=== PATIENT | female | born 1945 | race Caucasian/White ===

== ENCOUNTER 2019-10-08 16:59 | Inpatient (IN) | payer MEDICARE ==
[~2019-10-08 16:59] MED LIST: Dexamethasone 20 MG/5 ML VIAL ONE; Esmolol 100 MG/10 ML VIAL ONE; Glycopyrrolate 0.2 MG/ML 5 ML SYRINGE ONE; Lidocaine 1% PF 5 ML VIAL ONE; Ondansetron PF 4 MG/2 ML Vial ONE; PROPOFOL 200 MG/20 ML VIAL ONE; Rocuronium Bromide 10 MG/ML (10ML VIAL) ONE
--- NOTE | 2019-10-08 17:34 | RAD ---
Exam:Left tibia fibula 2 views HISTORY: Trauma. Pain. COMPARISON: None FINDINGS: Displaced fracture along the distal tibia and fibula. Associated soft tissue swelling and d eformity. IMPRESSION: Distal tibia and fibula fractures with associated deformity
--- NOTE | 2019-10-08 17:36 | RAD ---
Exam: Chest one view HISTORY:Preoperative radiograph. Fracture. Comparison: None FINDINGS: Cardiac silhouette:Enlarged cardiac silhouette. Aorta: Atherosclerosis of the aorta Pulmonary vessels: Normal Costophrenic angles: Clear LUNGS: No masses or consolidation. Pneumothorax: None Osseous abnormalities: None Incidental: Hiatal hernia is noted. IMPRESSION: No acute cardiopulmonary process.
[2019-10-08 18:08] LABS: #Neutrophils 7.2 thou/uL (1.40-6.50); %Basophils 0.2 % (0.0-1.0); %Eosinophils 0.2 % (0.0-10.0); %Lymphocytes 11.2 % (21.0-51.0); %Monocytes 10.6 % (0.0-10.0); %Neutrophils 77.9 % (42.0-75.0); Hemoglobin 12.9 g/dL (12.0-16.0); Mean Corpuscular HGB CONC 33.7 g/dL (32.0-36.0); Mean Corpuscular Hemoglobin 31.9 pg (27.0-31.0); Mean Corpuscular Volume 94.8 fL (78.0-98.0); Mean Platelet Volume 7.7 fL (7.4-10.4); Platelet Count 189 thou/uL (130-400); RBC Distribution Width 11.9 % (11.5-14.5); Red Blood Cell (RBC) Count 4.05 mill/uL (4.20-5.40); White Blood Cell (WBC) Count 9.3 thou/uL (4.8-10.8)
[2019-10-08 18:19] LABS: ALT (SGPT) 13 U/L (8-55); AST (SGOT) 16 U/L (5-34); Albumin 4.2 g/dL (3.4-4.8); Alkaline Phosphatase 78 U/L (40-110); Anion Gap 12 mmol/L (10-20); BUN (Urea Nitrogen) 18 mg/dL (9.8-20.1); Bilirubin, Total 0.4 mg/dL (0.2-1.2); Calc. Creatinine Clearance 0 mL/min (70-130); Calcium 8.8 mg/dL (7.8-10.44); Carbon Dioxide 23 mmol/L (23-31); Chloride 112 mmol/L (98-107); Estimated GFR-MDRD 42; Globulin 2.4 g/dL (2.4-3.5); Glucose 111 mg/dL (83-110); Potassium 4.2 mmol/L (3.5-5.1); Protein, Total 6.6 g/dL (6.0-8.3); Sodium 143 mmol/L (136-145)
[2019-10-08] MEDS ORDERED: Fentanyl 100 MCG/2 ML VIAL ONE ×6 (18:43→22:31)
[2019-10-08] MEDS ORDERED: HYDROmorphone 0.5 MG/0.5 ML SYRINGE ONE (18:44)
[2019-10-08] MEDS ORDERED: Phenylephrine HCL 10 MG/ML VIAL ONE (18:45)
--- NOTE | 2019-10-08 19:53 | RAD ---
TWO VIEWS LEFT FOOT: 10/08/19 HISTORY: Fall. Pain. Tibia and fibula fracture. FINDINGS: Lisfranc alignment is maintained. Preserved joint spaces. No fracture, cortical irregularity or perio steal reaction. Lisfranc alignment is maintained. Distal tibia and fibula fractures are redemonstrated. IMPRESSION: No fracture. POS: PPP
[2019-10-08] MEDS ORDERED: hydrALAZINE 20 MG/ML VIAL SLOW IVP PRN (20:47)
[2019-10-08] MEDS ORDERED: Dextrose 5% in Water 1,000 ML IV PRN (20:47)
[2019-10-08] MEDS ORDERED: Dextrose 50% Abboject 50 ML SYRINGE SLOW IVP PRN (20:47)
[2019-10-08] MEDS ORDERED: traMADol HCl 50 MG TAB PO PRN ×2 (20:50)
[2019-10-08] MEDS ORDERED: Ondansetron HCl/PF 4 MG/2 ML Vial IVP PRN (21:12)
--- NOTE | 2019-10-08 21:28 | RAD ---
EXAM: INTRAOPERATIVE FLUOROSCOPY: 10/08/19 HISTORY: Left leg ORIF. EXPOSURE: 13.5 seconds, 0.32 mGy. FINDINGS: Intraoperative fluoroscopy demonstrates a side plate at the distal tibia and fibula. Near anatomic al ignment. IMPRESSION: Intraoperative fluoroscopy as above. POS: PPP
--- NOTE | 2019-10-08 21:58 | HP ---
TRAUMA SURGEON: Dr. Noyola. CONSULTING PHYSICIAN: Dr. Flores. HISTORY OF PRESENT ILLNESS: The patient is a 74-year-old female, who presented to the emergency department via EMS as a level 2 trauma activation when she fell while trying to get on a horse. The patient had obvious left ankle deformity and she was splinted in the emergency department and sent to the Day Stay as orthopedic surgeon wants to take her to the OR. At the time of my evaluation, the patient complained of significant left ankle pain and her toes were becoming dusky and blue. Toes were also cold to the touch. She reported before the splinting, that she had pink normal color toes. Her sensation was intact. There was no concern for compartment syndrome. The splint was taken down at that time. The Doppler was performed and the patient had intact dopplerable posterior tibialis pulses, but there was no dorsalis pedis pulse noted. The patient's foot became cold about mid foot and was warm at the location of the ankle and above. She complained of no other pain and denied loss of consciousness. REVIEW OF SYSTEMS: All additional 10-point review of systems negative except as indicated above. PAST MEDICAL HISTORY: None. PAST SURGICAL HISTORY: Hysterectomy. SOCIAL HISTORY: The patient is a smoker. She drinks alcohol only on Tuesdays and denies drug use. MEDICATIONS: None. ALLERGIES: NO KNOWN DRUG ALLERGIES. PHYSICAL EXAMINATION: VITAL SIGNS: The patient is afebrile, hemodynamically stable, and not tachycardic. She is saturating greater than 91% on room air with no signs of respiratory distress. PRIMARY SURVEY: Airway intact. Adequate breath sounds bilaterally. 2+ pulses in the bilateral radials and femorals. Pulses positive in the right DP. Positive dopplerable pulses in the left PT, but no dopplerable pulse in the left DP. GCS is 15. No laceration, bruising, or external bleeding. SECONDARY SURVEY: HEAD: Normocephalic, atraumatic. No gross palpable skull deformities. EYES: Pupils 3-2, equal, round, reactive to light bilaterally. ENT: No hemotympanum. No epistaxis. No septal hematoma. Midface, stable to manipulation. No blood in the oropharynx. Dentition is intact. No anterior neck injury/crepitus/tenderness. C-SPINE: No step-offs or deformities. Nontender. C-collar not in place. CHEST: Nontender. No crepitus. No abrasions or ecchymosis noted. ABDOMEN: Soft, nontender, nondistended. PELVIS: Stable to palpation, nontender. No abrasions or ecchymosis noted. RECTAL: Deferred. GENITOURINARY: Deferred. EXTREMITIES: Left ankle with deformity. There is also duskiness to the patient's midfoot and toes. No abrasions or ecchymosis noted. 2+ pulses in bilateral radials, femorals, and the right DP/PT. There is no dopplerable pulse of the left DP, but there is a dopplerable pulse of the left PT. BACK/SPINE: No step-offs or deformities or tenderness to palpation of the thoracic or lumbar spine. No abrasions or ecchymosis noted. NEUROLOGIC: 5/5 strength in the bilateral prop sawyer, plantar flexion, and dorsiflexion. Gross normal sensation x4 extremities. LABORATORY FINDINGS: White count 9.3, hemoglobin 12.9, hematocrit 38.4, platelets 189. Sodium 143, potassium 4.2, chloride 111, bicarb 23, BUN 18, creatinine 1.25, glucose 111, total bilirubin 0.4, AST 16, ALT 13. Troponin less than 0.010. DIAGNOSTIC FINDINGS: Chest x-ray demonstrates no acute cardiopulmonary process. X-ray of the left tib-fib demonstrates distal tibial and fibular fracture with associated deformity. X-ray of the left foot demonstrates no fracture. ASSESSMENT: 1. Status post fall from horse. 2. Left tib-fib fracture. 3. Diminished pulses to the left mid foot. 4. Acute kidney injury. PLAN: The patient will be admitted to the Trauma Service. Dr. Flores at bedside evaluating pulses in the foot. He reports he will re-evaluate with Doppler after he reduces the foot and fixes the fracture in the operating room and will follow up with the Trauma Team postoperatively. If there is further concern for vascular injury, we will work that up as well. Postoperatively, the patient will work with Physical and Occupational Therapy and receive p.o. and IV pain medications as needed. She will also receive normal saline for her acute kidney injury, and we will repeat blood work tomorrow. She will likely need placement in acute rehab facility. We will ask Case Management to start working on that tomorrow. Postoperatively, she will have a regular diet as well. This patient will be discussed with Dr. Noyola after this dictation. Job ID: [id number]
[2019-10-08] MEDS: CEFAZOLIN 2 GM in Premix Bag 1 BAG IVPB SCH (23:09)
[2019-10-08] MEDS: Sodium Chloride 0.9% 1,000 ML IV SCH (23:19)
[2019-10-08] MEDS: Morphine 2 MG/ML SYRINGE SLOW IVP PRN (23:20)
[2019-10-08] MEDS: Senokot S 8.6-50 MG TAB PO SCH (23:21)
[2019-10-08] MEDS: Acetaminophen 500 MG TAB PO SCH (23:21)
[2019-10-08] MEDS: Gabapentin 100 MG CAP PO SCH (23:21)
--- NOTE | 2019-10-08 23:30 | PRG ---
DATE OF SERVICE: 10/08/2019 SUBJECTIVE: The patient was seen this evening in the post-anesthesia care unit. The patient is postop repair of her left tibia fracture. The patient is currently sedated, in no acute distress. The patient has a splint in place to her left lower extremity. Cap refill is less than 2 seconds, foot is warm and pink. ASSESSMENT: 1. Status post fall from horse. 2. Left tib-fib fracture, status post repair. 3. Acute kidney injury. PLAN: Continue maintenance IV fluids overnight. We will start the patient on a regular diet as tolerated. We will have Physical and Occupational Therapy work with the patient tomorrow morning. We will continue to monitor urinary output and repeat labs in the morning. Job ID: [id number]
[2019-10-08 23:38] VITALS: BMI 27.1
--- NOTE | 2019-10-09 00:47 | OP ---
DATE OF PROCEDURE: 10/08/2019 PROCEDURE PERFORMED: Open reduction and internal fixation of left distal tibia and left distal fibular fracture. PREOPERATIVE DIAGNOSIS: Left distal fibula and tibia fracture. POSTOPERATIVE DIAGNOSIS: Left distal fibula and tibia fracture. COMPLICATIONS: None. ESTIMATED BLOOD LOSS: 50 mL. ANESTHESIA: General. IMPLANT: Synthes 4-hole distal tibial medial variable angle locking plate and a 5-hole distal fibular locking plate were utilized. INDICATIONS: Ms. Olmos is a 74-year-old female, who has been injured. She was attempting to ride a wild horse. She was thrown. She landed on her left leg. She became entangled with a stool as well. She fractured the distal tibia and fibula. She has been indicated for open reduction and internal fixation to restore anatomic alignment and promote healing and prevent complications of her displacement. Risks have been reviewed in detail. She has elected to proceed with the operation. Risks to include, nonunion, malunion, infection, wound complication, and others. DESCRIPTION OF PROCEDURE: Ms. Olmos is a 74-year-old female, who was identified in the preoperative holding area. Her correct extremity was marked. She was carried to the operating room. She was positioned supine. General anesthesia was induced. A multidisciplinary time-out was performed. The left lower extremity was prepped and draped in sterile fashion. We began the procedure with performing a small incision over the medial malleolus. We dissected down through the subcutaneous tissues to the medial malleolar bone. We cleared a spot for our plate. We subperiosteally passed a plate from distal to proximal. At this point, we reduced the fracture using gentle traction and manipulation. We x-ray imaged this confirming reduction. Next, we placed a nonlocking screw proximally as well as distally. We then filled multiple screw holes with locking screws. Again, we confirmed this with x-ray imaging. There were no complications. Once we had adequate fixation, we then moved to the lateral side. We made an incision over the fibula, dissected down to the bony level. We exposed the underlying fibular fracture. It was highly comminuted and displaced. We used a bridge plate technique. We pulled traction on the fibula and placed our lateral locking plate. Multiple screws were placed distally and proximally. Again, once we finished fixation, we x-ray imaged the ankle. We then thoroughly irrigated with copious lavage. Next, we closed in layers. 2-0 Vicryl suture and 3-0 nylon suture were used in an interrupted fashion. A sterile dressing was applied and a splint. The patient was taken to the recovery room at this point in good condition. Job ID: [id number]
--- NOTE | 2019-10-09 00:52 | CON ---
DATE OF CONSULTATION: 10/08/2019 CHIEF COMPLAINT: Left ankle pain. HISTORY OF PRESENT ILLNESS: Ms. Olmos is a 74-year-old female, who was attempting to get on a horse using a stool. She unfortunately spooked the horse and the horse took off and she fell hard. She injured her left ankle. She had immediate pain and deformity. She was unable to bear weight. She was found to have a distal tibia and fibular fracture on initial x-ray. Orthopedics was consulted. The patient has been given pain medication. She is resting comfortably. No other injuries have been identified. PAST MEDICAL HISTORY: Prolapsed bladder. Otherwise, she denies active medical problems. PAST SURGICAL HISTORY: [place] tooth extraction and hysterectomy. PSYCHIATRIC HISTORY: Negative. SOCIAL HISTORY: The patient denies tobacco, alcohol, or drug use currently. REVIEW OF SYSTEMS: Positive for left ankle pain. Otherwise, negative 10-point review of systems. IMAGING DATA: X-rays demonstrated distal tibia fracture with significant displacement. There is also highly comminuted distal fibular fracture. PHYSICAL EXAMINATION: VITAL SIGNS: Stable. The patient is afebrile. She is normotensive. 98% on room air. GENERAL: She is alert and oriented, sitting with head of bed elevated. No apparent distress. HEENT: Normocephalic, atraumatic. RESPIRATORY: Breathing comfortably. ABDOMEN: Soft, nontender, and nondistended. MUSCULOSKELETAL: The patient's left lower extremity has deformity and swelling. There is good two-second capillary refill of the foot. Posterior tibialis pulse is palpable. The dorsalis pedis pulse is not palpable. She feels normal sensation in the dorsal and plantar foot. IMPRESSION: Left distal tibia and fibular fracture from horse accident. PLAN: At this point, the patient will go to the operating room for open reduction and internal fixation of her tibia and fibula. Goal is to restore anatomic alignment and stability of the ankle. Risks have been reviewed with her and her family. We will proceed. She will have antibiotics on-call to the operating room, as well as DVT prophylaxis postoperatively. She will likely need to be in the hospital two days for physical therapy. She will be nonweightbearing on her left leg for 6 weeks at least. Job ID: [id number]
[2019-10-09] MEDS: Morphine 2 MG/ML SYRINGE SLOW IVP PRN (03:39)
[2019-10-09] MEDS: Acetaminophen 500 MG TAB PO SCH ×4 (05:01→23:57)
[2019-10-09] MEDS: CEFAZOLIN 2 GM in Premix Bag 1 BAG IVPB SCH (05:01)
[2019-10-09 05:09] LABS: #Lymphocytes 0.7 thou/uL (1.20-3.40); #Monocytes 0.4 thou/uL (0.11-0.59); #Neutrophils 5.9 thou/uL (1.40-6.50); %Basophils 0.1 % (0.0-1.0); %Eosinophils 0.1 % (0.0-10.0); %Lymphocytes 10.3 % (21.0-51.0); %Monocytes 5.8 % (0.0-10.0); %Neutrophils 83.7 % (42.0-75.0); Mean Corpuscular HGB CONC 33.3 g/dL (32.0-36.0); Mean Corpuscular Hemoglobin 31.5 pg (27.0-31.0); Mean Corpuscular Volume 94.6 fL (78.0-98.0); Mean Platelet Volume 6.8 fL (7.4-10.4); Platelet Count 148 thou/uL (130-400); RBC Distribution Width 11.9 % (11.5-14.5); Red Blood Cell (RBC) Count 3.51 mill/uL (4.20-5.40); White Blood Cell (WBC) Count 7.1 thou/uL (4.8-10.8)
[2019-10-09 05:37] LABS: Anion Gap 10 mmol/L (10-20); BUN (Urea Nitrogen) 14 mg/dL (9.8-20.1); Calc. Creatinine Clearance 46 mL/min (70-130); Calcium 8.2 mg/dL (7.8-10.44); Carbon Dioxide 23 mmol/L (23-31); Chloride 110 mmol/L (98-107); Estimated GFR-MDRD 48; Glucose 137 mg/dL (83-110); Magnesium 1.7 mg/dL (1.6-2.6); Phosphorus 3.6 mg/dL (2.3-4.7); Potassium 4.2 mmol/L (3.5-5.1); Sodium 139 mmol/L (136-145)
[2019-10-09] MEDS ORDERED: Magnesium 2 GM/50 ML 2 GM in Premix Bag 1 BAG IVPB SCH (07:30)
[2019-10-09] MEDS: Gabapentin 100 MG CAP PO SCH ×3 (07:58→20:27)
[2019-10-09] MEDS: Senokot S 8.6-50 MG TAB PO SCH ×2 (07:58→20:28)
[2019-10-09] MEDS: Polyethylene Glycol 3350 17 GM Packet PO SCH (07:58)
[2019-10-09] MEDS ORDERED: FLU VACC TS2019-20(65YR UP)/PF 180 MCG/0.5 ML SYRINGE IM ONE (09:00)
[2019-10-09] MEDS ORDERED: Prevnar 13-Val Conj/PF 0.5 ML SYRINGE IM ONE (09:00)
[2019-10-09] MEDS: Sodium Chloride 0.9% 1,000 ML IV SCH (10:44)
[2019-10-09] MEDS: traMADol HCl 50 MG TAB PO SCH ×3 (11:42→23:57)
--- NOTE | 2019-10-09 15:27 | PRG ---
DATE OF SERVICE: 10/09/2019 SUBJECTIVE: Patient was seen this morning lying in bed with no signs of acute distress. She reported her pain was not well controlled. She is tolerating regular diet and has not worked with Physical Therapy yet. OBJECTIVE: VITAL SIGNS: Temperature is 97.9, pulse 74, respirations 18, oxygen saturation 92% on room air, blood pressure 103/63. GENERAL: Well-appearing elderly female, lying in bed with no signs of acute distress. PULMONARY: Equal chest rise and fall, clear breath sounds bilaterally. No signs of acute respiratory distress. CARDIAC: Regular rate and rhythm. GI: Abdomen is soft, nontender, nondistended. EXTREMITIES: 2+ pulses in all extremities. Gross motor and sensation intact. Splint to left upper extremity is clean, dry, and intact. LABORATORY FINDINGS: White count 7.1, hemoglobin 11.0, hematocrit 33.2, platelets 148. Sodium 139, potassium 4.2, chloride 110, bicarb 23, BUN 14, creatinine 1.10, glucose 137, phosphorus 3.6, magnesium 1.7. DIAGNOSTIC FINDINGS: There are no new diagnostic findings to report. ASSESSMENT: 1. Status post fall from horse. 2. Left tibia-fibula fracture, status post repair. 3. Acute kidney injury, resolved. 4. Acute traumatic pain. PLAN: Continue current diet. Discontinue IV fluids. We would increase patient's pain regimen. I increased gabapentin to 300 t.i.d. and tramadol to 100 q.6 hours. She will be started on Lovenox for DVT prophylaxis and will be discharged on aspirin for DVT prophylaxis. She is being evaluated for acute rehab placement. Job ID: [id number]
[2019-10-09] MEDS: Enoxaparin Sodium 30 MG/0.3 ML SYRINGE SC SCH (20:28)
--- NOTE | 2019-10-10 01:09 | PRG ---
DATE OF SERVICE: 10/09/2019 SUBJECTIVE: Patient was seen during evening rounds, resting comfortably in the hospital bed, in no acute distress. The patient is postop day #1 status post left tibia fracture repair. OBJECTIVE: Vital signs are stable and the patient is afebrile. PLAN: Continue supportive care and pain regimen. Continue to monitor urinary output. Continue physical and occupational therapy. Rehab screen has been placed. Job ID: [id number]
[2019-10-10] MEDS: traMADol HCl 50 MG TAB PO SCH ×4 (05:00→23:21)
[2019-10-10] MEDS: Acetaminophen 500 MG TAB PO SCH ×4 (05:00→23:20)
[2019-10-10 05:58] LABS: Anion Gap 10 mmol/L (10-20); BUN (Urea Nitrogen) 18 mg/dL (9.8-20.1); Calc. Creatinine Clearance 43 mL/min (70-130); Calcium 8.1 mg/dL (7.8-10.44); Carbon Dioxide 25 mmol/L (23-31); Chloride 105 mmol/L (98-107); Estimated GFR-MDRD 44; Glucose 97 mg/dL (83-110); Magnesium 1.8 mg/dL (1.6-2.6); Phosphorus 3.2 mg/dL (2.3-4.7); Potassium 3.7 mmol/L (3.5-5.1); Sodium 136 mmol/L (136-145)
[2019-10-10] MEDS ORDERED: PHOS-NAK 1 PKT PACK PO SCH (09:15)
[2019-10-10] MEDS ORDERED: Sodium Chloride 0.9% 1,000 ML IV SCH (09:15)
[2019-10-10] MEDS ORDERED: Magnesium 2 GM/50 ML 2 GM in Premix Bag 1 BAG IVPB SCH (09:15)
[2019-10-10] MEDS: Senokot S 8.6-50 MG TAB PO SCH ×2 (09:24→20:34)
[2019-10-10] MEDS: Gabapentin 100 MG CAP PO SCH ×3 (09:24→20:35)
[2019-10-10] MEDS: Polyethylene Glycol 3350 17 GM Packet PO SCH (09:25)
--- NOTE | 2019-10-10 09:30 | PRG ---
DATE OF SERVICE: 10/10/2019 SUBJECTIVE: Shu is a 74-year-old female, who is postop day 2 from a left ankle open reduction and internal fixation for distal metaphyseal tibial fracture and fibular fracture on the left. I believe the Trauma Team is discussing inpatient rehabilitation placement for this particular patient due to the fact she lives alone. OBJECTIVE: Her splints loosened. She does have some strikethrough both medially and laterally, but no gross active bleeding is identified. She has good digital excursion and good capillary refill in all digits. Her legs elevated and splints intact otherwise. LABORATORY STUDIES: Hemoglobin and hematocrit as of yesterday are 11 and 33. IMPRESSION: A 74-year-old female, postop day 2, left distal tibial and fibular metaphyseal fracture, status post open reduction and internal fixation. PLAN: Splint loosened today. Recheck tomorrow. Defer to Trauma Team for placement. Job ID: [id number]
[2019-10-10 09:48] LABS: #Lymphocytes 1.6 thou/uL (1.20-3.40); #Monocytes 0.9 thou/uL (0.11-0.59); #Neutrophils 3.4 thou/uL (1.40-6.50); %Basophils 0.7 % (0.0-1.0); %Eosinophils 0.7 % (0.0-10.0); %Lymphocytes 26.4 % (21.0-51.0); %Monocytes 14.9 % (0.0-10.0); %Neutrophils 57.3 % (42.0-75.0); Hemoglobin 9.8 g/dL (12.0-16.0); Mean Corpuscular HGB CONC 33.4 g/dL (32.0-36.0); Mean Corpuscular Hemoglobin 31.9 pg (27.0-31.0); Mean Corpuscular Volume 95.6 fL (78.0-98.0); Mean Platelet Volume 7.5 fL (7.4-10.4); Platelet Count 162 thou/uL (130-400); RBC Distribution Width 12.2 % (11.5-14.5); Red Blood Cell (RBC) Count 3.08 mill/uL (4.20-5.40); White Blood Cell (WBC) Count 5.9 thou/uL (4.8-10.8)
[2019-10-10] MEDS ORDERED: Cyclobenzaprine 10 MG TAB PO PRN (10:14)
[2019-10-10] MEDS ORDERED: Hydrocortisone Sod Succ/PF 100 mg/2 ml Vial IVP SCH ×2 (10:15→18:00)
--- NOTE | 2019-10-10 14:31 | PRG ---
DATE OF SERVICE: 10/10/2019 SUBJECTIVE: The patient was seen this morning lying in bed with no signs of acute distress. She reported cramping like feeling in her left ankle. Reported sleeping well overnight. Has not had breakfast simply because she is not hungry. In the past 24 hours, she had low urinary output and this morning was hypotensive with systolics in the 80s. OBJECTIVE: VITAL SIGNS: Temperature 97.9, pulse 73, respirations 18, oxygen saturation 92% on room air, blood pressure 89/57. GENERAL: Well-appearing elderly female, lying in bed with no signs of acute distress. PULMONARY: Equal chest rise and fall. Clear breath sounds bilaterally. No signs of acute respiratory distress. CARDIAC: Regular rate and rhythm. GI: Abdomen is soft, nontender, nondistended. EXTREMITIES: 2+ pulses in all extremities. No significant swelling noted. Bilateral cap refills that are normal. LABORATORY FINDINGS: White count 5.9, hemoglobin 9.8, hematocrit 29.5, platelets 162. Sodium 136, potassium 3.7, chloride 105, bicarb 25, BUN 18, creatinine 1.19, glucose 97, phosphorus 3.2, magnesium 1.8, cortisol 7.8. DIAGNOSTIC FINDINGS: There are no new diagnostic findings to report. ASSESSMENT: 1. Status post fall from horse. 2. Left distal tib-fib fracture, status post repair. 3. Acute kidney injury. 4. Acute adrenal insufficiency. PLAN: Continue current diet and pain regimen. Continue physical and occupational therapy. Add Flexeril to pain regimen. The patient will receive hydrocortisone today as well as 1 L bolus of normal saline for low urinary output and systolic blood pressures less than 90. We will follow up her urinary output. The patient is pending placement at an acute rehab facility. This patient was discussed with Dr. Pizarro before this dictation. Job ID: [id number]
[2019-10-10] MEDS: Hydrocortisone Sod Succ/PF 100 mg/2 ml Vial IVP SCH ×2 (18:18→23:22)
[2019-10-10] MEDS: Enoxaparin Sodium 30 MG/0.3 ML SYRINGE SC SCH (20:35)
--- NOTE | 2019-10-11 03:36 | PRG ---
DATE OF SERVICE: 10/10/2019 SUBJECTIVE: The patient was seen during evening rounds, resting comfortably, in no acute distress. The patient continues to have good urinary output. OBJECTIVE: VITAL SIGNS: Stable, afebrile. PLAN: Continue current diet and pain regimen. Continue physical and occupational therapy. We will continue to monitor urinary output and blood pressure. The patient is pending placement to an acute rehab facility. Job ID: [id number]
[2019-10-11 05:20] LABS: #Monocytes 0.6 thou/uL (0.11-0.59); #Neutrophils 4.2 thou/uL (1.40-6.50); %Basophils 0.2 % (0.0-1.0); %Eosinophils 0.2 % (0.0-10.0); %Lymphocytes 16.5 % (21.0-51.0); %Monocytes 10.2 % (0.0-10.0); Hemoglobin 8.9 g/dL (12.0-16.0); Mean Corpuscular HGB CONC 33.7 g/dL (32.0-36.0); Mean Corpuscular Hemoglobin 32.7 pg (27.0-31.0); Mean Platelet Volume 7.1 fL (7.4-10.4); Platelet Count 148 thou/uL (130-400); RBC Distribution Width 11.9 % (11.5-14.5); Red Blood Cell (RBC) Count 2.73 mill/uL (4.20-5.40); White Blood Cell (WBC) Count 5.7 thou/uL (4.8-10.8)
[2019-10-11 05:43] LABS: Anion Gap 9 mmol/L (10-20); BUN (Urea Nitrogen) 12 mg/dL (9.8-20.1); Calc. Creatinine Clearance 59 mL/min (70-130); Calcium 8.2 mg/dL (7.8-10.44); Carbon Dioxide 26 mmol/L (23-31); Chloride 107 mmol/L (98-107); Estimated GFR-MDRD 64; Glucose 120 mg/dL (83-110); Phosphorus 3.2 mg/dL (2.3-4.7); Potassium 4.4 mmol/L (3.5-5.1); Sodium 138 mmol/L (136-145)
[2019-10-11] MEDS: Acetaminophen 500 MG TAB PO SCH ×4 (06:07→23:36)
[2019-10-11] MEDS: traMADol HCl 50 MG TAB PO SCH ×4 (06:08→23:36)
[2019-10-11] MEDS: Hydrocortisone Sod Succ/PF 100 mg/2 ml Vial IVP SCH ×4 (06:09→23:36)
[2019-10-11] MEDS: Senokot S 8.6-50 MG TAB PO SCH ×2 (10:36→20:23)
[2019-10-11] MEDS: Polyethylene Glycol 3350 17 GM Packet PO SCH (10:36)
[2019-10-11] MEDS: Gabapentin 100 MG CAP PO SCH ×3 (10:37→20:23)
--- NOTE | 2019-10-11 12:49 | PRG ---
DATE OF SERVICE: 10/11/2019 SUBJECTIVE: The patient was seen this morning, sitting up in chair with left upper extremity elevated. She reported she slept very well overnight and her pain is much better controlled today. Generally, she reports she is feeling much better. Her urinary output has increased tremendously, and she is tolerating her diet. OBJECTIVE: VITAL SIGNS: Temperature 98.5, pulse 76, respirations 16, oxygen saturation 93% on room air, blood pressure 112/73. GENERAL: Well-appearing elderly female, sitting up in chair with no signs of acute distress. PULMONARY: Equal chest rise and fall. Clear breath sounds bilaterally. No signs of acute respiratory distress. CARDIAC: Regular rate and rhythm. No murmurs, gallops, or rubs. GI: Abdomen is soft, nontender, nondistended. EXTREMITIES: 2+ pulses in all extremities. Gross motor and sensation are intact. No significant swelling noted. Left lower extremity with splint that is clean, dry, and intact. Toes are warm with good cap refill. NEUROLOGIC: GCS is 15. LABORATORY FINDINGS: White count 5.7, hemoglobin 8.9, hematocrit 26.5, platelets 148. Sodium 138, potassium 4.4, chloride 107, bicarb 26, BUN 12, creatinine 0.86, glucose 120, phosphorus 3.2, magnesium 2.0. DIAGNOSTIC FINDINGS: There are no new diagnostic findings to report. ASSESSMENT: 1. Status post fall from horse. 2. Left distal tibiofibular fracture, status post repair. 3. Acute kidney injury, resolved. 4. Acute adrenal insufficiency, stable. PLAN: Continue current diet and pain regimen. Continue physical and occupational therapy. The patient encouraged to drink more fluids. No need for additional IV fluids or boluses. Continue hydrocortisone as previously scheduled. The patient is pending placement in acute rehab facility. Hopefully, she will be accepted by her insurance and can be discharged tomorrow. This patient will be discussed with Dr. Pizarro after this dictation. Job ID: [id number]
[2019-10-11] MEDS: Enoxaparin Sodium 30 MG/0.3 ML SYRINGE SC SCH (20:24)
--- NOTE | 2019-10-12 01:24 | PRG ---
DATE OF SERVICE: 10/11/2019 SUBJECTIVE: The patient was seen this evening during rounds, sitting up in hospital bed, in no acute distress. The patient reports that her pain is well controlled and she continues to tolerate a regular diet. The patient's family did bring a brace for her right knee as she had requested. OBJECTIVE: VITAL SIGNS: Stable, afebrile. GENERAL: Well-appearing elderly female, sitting up in hospital bed, in no acute distress. PULMONARY: Equal chest rise and fall. No respiratory distress. EXTREMITIES: Moves all extremities, gross motor and sensation are intact. There is significant swelling. Left lower extremity with splint in place that is clean, dry, and intact. NEUROLOGIC: GCS 15. ASSESSMENT: 1. Status post fall from horse. 2. Left distal tibiofibular fracture, status post repair. 3. Acute kidney injury, resolved. 4. Acute adrenal insufficiency, stable. PLAN: 1. Continue supportive care. 2. Continue current diet as tolerated and pain regimen. 4. Continue physical and occupational therapy. 5. The patient is pending placement to acute inpatient rehab. Job ID: [id number] [facility]
[2019-10-12 05:09] LABS: #Lymphocytes 1.3 thou/uL (1.20-3.40); #Monocytes 0.6 thou/uL (0.11-0.59); #Neutrophils 3.2 thou/uL (1.40-6.50); %Basophils 0.2 % (0.0-1.0); %Eosinophils 0.2 % (0.0-10.0); %Lymphocytes 24.6 % (21.0-51.0); %Monocytes 12.2 % (0.0-10.0); %Neutrophils 62.8 % (42.0-75.0); Hemoglobin 8.7 g/dL (12.0-16.0); Mean Corpuscular HGB CONC 33.1 g/dL (32.0-36.0); Mean Corpuscular Hemoglobin 31.9 pg (27.0-31.0); Mean Corpuscular Volume 96.3 fL (78.0-98.0); Mean Platelet Volume 7.4 fL (7.4-10.4); Platelet Count 156 thou/uL (130-400); Red Blood Cell (RBC) Count 2.74 mill/uL (4.20-5.40); White Blood Cell (WBC) Count 5.1 thou/uL (4.8-10.8)
[2019-10-12] MEDS: traMADol HCl 50 MG TAB PO SCH ×3 (05:35→18:10)
[2019-10-12] MEDS: Acetaminophen 500 MG TAB PO SCH ×3 (05:35→18:10)
[2019-10-12 05:39] LABS: Anion Gap 11 mmol/L (10-20); BUN (Urea Nitrogen) 16 mg/dL (9.8-20.1); Calc. Creatinine Clearance 53 mL/min (70-130); Calcium 8.3 mg/dL (7.8-10.44); Carbon Dioxide 26 mmol/L (23-31); Chloride 106 mmol/L (98-107); Estimated GFR-MDRD 57; Glucose 120 mg/dL (83-110); Magnesium 1.8 mg/dL (1.6-2.6); Phosphorus 2.8 mg/dL (2.3-4.7); Potassium 4.2 mmol/L (3.5-5.1); Sodium 139 mmol/L (136-145)
[2019-10-12] MEDS: Hydrocortisone Sod Succ/PF 100 mg/2 ml Vial IVP SCH ×2 (05:39→21:09)
[2019-10-12] MEDS ORDERED: Magnesium 2 GM/50 ML 2 GM in Premix Bag 1 BAG IVPB SCH (07:45)
[2019-10-12] MEDS ORDERED: PHOS-NAK 1 PKT PACK PO SCH (07:45)
[2019-10-12] MEDS: Polyethylene Glycol 3350 17 GM Packet PO SCH (07:48)
[2019-10-12] MEDS: Gabapentin 100 MG CAP PO SCH ×3 (07:48→20:51)
[2019-10-12] MEDS: Senokot S 8.6-50 MG TAB PO SCH ×2 (07:48→20:42)
--- NOTE | 2019-10-12 13:04 | PRG ---
DATE OF SERVICE: 10/12/2019 SUBJECTIVE: The patient was seen this morning sitting up in bed with no signs of acute distress. She reported she slept well overnight and pain is well controlled. She has no acute complaints at the time of my evaluation. She has not had a bowel movement since arriving at the hospital. OBJECTIVE: VITAL SIGNS: Temperature 97.8, pulse 81, respirations 14, oxygen saturation 96% on room air, and blood pressure 114/71. GENERAL: Well-appearing elderly female, sitting up in bed with no signs of acute distress. PULMONARY: Equal chest rise and fall. Clear breath sounds bilaterally. No signs of acute respiratory distress. CARDIAC: Regular rate and rhythm. No murmurs, gallops, or rubs. GI: Abdomen is soft, nontender, and nondistended. EXTREMITIES: 2+ pulses in all extremities. Gross motor and sensation intact. No significant swelling noted. Splint to left lower extremity is clean, dry, and intact with no signs of oozing. NEUROLOGIC: GCS is 15. LABORATORY FINDINGS: White count 5.1, hemoglobin 8.7, hematocrit 26.4, and platelets 156. Sodium 134, potassium 4.2, chloride 106, bicarb 26, BUN 16, creatinine 0.96, glucose 120, phosphorus 2.8, and magnesium 1.8. DIAGNOSTIC FINDINGS: There are no new diagnostic findings to report. ASSESSMENT: 1. Status post fall from horse. 2. Left distal tib-fib fracture, status post repair. 3. Acute kidney injury, resolved. 4. Acute adrenal insufficiency, stable. PLAN: Continue current diet and pain regimen. Continue physical and occupational therapy. We will start to slowly taper hydrocortisone. We will decrease from q.6 hours to q.12 hours. We will also give the patient lactulose in addition to her bowel regimen as previously scheduled. We will continue this until she has her first bowel movement. The patient is pending placement at acute rehab facility. She is ready for discharge at this time and is awaiting insurance and bed availability at the rehab facility. This patient was seen and examined by Dr. Pizarro and myself this morning during rounds. Job ID: [id number] [facility]
[2019-10-12] MEDS: Enoxaparin Sodium 30 MG/0.3 ML SYRINGE SC SCH (20:51)
--- NOTE | 2019-10-13 00:03 | PRG ---
DATE OF SERVICE: 10/12/2019 SUBJECTIVE: Patient was seen this evening during rounds, in no acute distress. The patient reports that her pain is well controlled. The patient did have approximately 6 bowel movements today after receiving lactulose. The patient continues to tolerate a regular diet. SUBJECTIVE: VITAL SIGNS: Stable and the patient is afebrile. The patient continues to have good urinary output. PLAN: Continue supportive care. Continue to have Physical and Occupational Therapy work with the patient. We will change the patient's hydrocortisone to p.o. twice a day. The plan was discussed with the patient who agrees. Job ID: [id number]
[2019-10-13] MEDS: Acetaminophen 500 MG TAB PO SCH ×3 (00:20→12:07)
[2019-10-13] MEDS: traMADol HCl 50 MG TAB PO SCH ×3 (00:20→12:06)
[2019-10-13] MEDS: Gabapentin 100 MG CAP PO SCH (08:46)
[2019-10-13] MEDS: Hydrocortisone Sod Succ/PF 100 mg/2 ml Vial IVP SCH (08:47)
[2019-10-13] MEDS: Senokot S 8.6-50 MG TAB PO SCH (08:47)
[2019-10-13] MEDS: Polyethylene Glycol 3350 17 GM Packet PO SCH (08:47)
[2019-10-13 12:16] VITALS: BP 128/79; TEMP 97.9
[2019-10-13] MEDS ORDERED: Hydrocortisone 10 mg Tablet PO SCH (21:00)
--- NOTE | 2019-10-14 01:47 | DIS ---
DATE OF ADMISSION: 10/08/2019 DATE OF DISCHARGE: 10/13/2019 ADMISSION DIAGNOSES: 1. Status post fall from a horse. 2. Left distal tib-fib fracture. 3. Acute kidney injury. 4. Acute adrenal insufficiency. DISCHARGE DIAGNOSES: 1. Status post fall from a horse. 2. Left distal tib-fib fracture, status post ORIF of left distal tib-fib fracture. 3. Acute kidney injury, resolved. 4. Acute adrenal insufficiency, resolved. CONSULTING PHYSICIAN: Dr. Gelacio Flores. PROCEDURE: ORIF of the left distal tib-fib fracture. HOSPITAL COURSE: Ms. Olmos is a 74-year-old female, status post fall from a horse. She sustained left distal tib-fib fracture. She underwent ORIF of left tib-fib fracture with Dr. Flores. The patient tolerated with the procedure well. Postop, the patient has been doing good. Pain is well controlled. She tolerated with regular diet. She had been working with PT/OT. Her vital signs are stable. She has been accepted to rehabilitation facility today. PHYSICAL EXAMINATION: GENERAL: The patient is lying in bed comfortable with no acute respiratory distress. The patient is alert, awake, oriented x3. VITAL SIGNS: Temperature 97.9, heart rate 82, respiratory rate 20, O2 saturation 96% on room air, and blood pressure 128/79. LUNGS: Clear bilaterally. HEART: Regular rate and rhythm. ABDOMEN: Soft, nondistended. EXTREMITIES: Neurovascularly intact x4. Left lower extremity postop dressing is clean, intact. Left toe pink and warm. Capillary refill is normal. NEUROLOGICAL: No focal neurology deficits. DISCHARGE DISPOSITION: Rehabilitation facility. DISCHARGE CONDITION: Good. DISCHARGE INSTRUCTIONS: The patient is to take medication as directed. The patient is to have nonweightbearing of left lower extremity. The patient is to have a regular diet. The patient is to continue working with PT/OT. The patient is to see Dr. Flores in 10-14 days. DISCHARGE MEDICATION: 1. Tylenol. 2. Flexeril. 3. Lovenox. 4. Gabapentin. 5. Glucagon. 6. Hydralazine. 7. Hydrocortisone. 8. MiraLAX. 9. Senokot. 10. Tramadol. Job ID: [id number]
== END 2019-10-13 15:05 | DRG 493 ==
LOC: ERS 16:59 → SJJU 20:51
PROVIDERS: ADMIT Surgery; ATTEND Surgery
PROC: 0QSK04Z Reposition Left Fibula with Internal Fixation Device, Open Approach (ICD-10-PCS; principal; 2019-10-08)
PROC: 0QSH04Z Reposition Left Tibia with Internal Fixation Device, Open Approach (ICD-10-PCS; 2019-10-08)
DX: S82.302A Unspecified fracture of lower end of left tibia, initial encounter for closed fracture (principal); N17.9 Acute kidney failure, unspecified; E27.40 Unspecified adrenocortical insufficiency; Z90.710 Acquired absence of both cervix and uterus; S82.832A Other fracture of upper and lower end of left fibula, initial encounter for closed fracture; V80.010A Animal-rider injured by fall from or being thrown from horse in noncollision accident, initial encounter; Z87.891 Personal history of nicotine dependence
CPT/HCPCS: 29515; 36415; 36416; 71045; 76000; 80048; 80053; 82533; 83735; 84100; 84484; 85025; 93005; C1713; G0390; J0690; J1100; J1170; J1650; J1720; J2001; J2270; J2370; J2405; J2704; J3010; J3475

== ENCOUNTER 2020-06-24 05:56 | Observation (INO) | payer MEDICARE ==
[2020-06-24] MEDS ORDERED: Fentanyl 100 MCG/2 ML VIAL ONE ×3 (06:34→09:24)
[2020-06-24] MEDS ORDERED: Bupivacaine HCl 0.5%/Epinephrine 1:200,000/PF 30 ml Vial ONE (07:44)
[2020-06-24] MEDS ORDERED: Promethazine HCl 25 MG/ML VIAL SLOW IVP PRN (08:40)
[2020-06-24] MEDS ORDERED: Ondansetron HCl/PF 4 MG/2 ML Vial IVP PRN (08:40)
[2020-06-24] MEDS ORDERED: Promethazine HCl 25 MG/ML VIAL IM PRN (08:40)
[2020-06-24] MEDS ORDERED: traMADol HCl 50 MG TAB PO PRN ×2 (08:44)
[2020-06-24] MEDS ORDERED: Ondansetron PF 4 MG/2 ML Vial SLOW IVP PRN (08:44)
[2020-06-24] MEDS ORDERED: Morphine 2 MG/ML VIAL SLOW IVP PRN (08:44)
[2020-06-24] MEDS ORDERED: HYDROcodone/Acetaminophen 5/325 mg Tablet PO PRN ×2 (08:44)
[2020-06-24] MEDS ORDERED: Meperidine HCl/PF 25 MG/ML VIAL ONE (09:20)
[2020-06-24] MEDS ORDERED: Ondansetron PF 4 MG/2 ML Vial ONE (09:32)
[2020-06-24] MEDS ORDERED: Lidocaine 1% PF 5 ML VIAL ONE (09:32)
[2020-06-24] MEDS ORDERED: Ketorolac Tromethamine 30 MG/ML VIAL ONE (09:32)
[2020-06-24] MEDS ORDERED: PROPOFOL 200 MG/20 ML VIAL ONE (09:32)
[2020-06-24] MEDS ORDERED: Dexamethasone 20 MG/5 ML VIAL ONE (09:32)
[2020-06-24] MEDS ORDERED: HYDROmorphone 2 MG/ML VIAL ONE (09:36)
--- NOTE | 2020-06-24 10:24 | OP ---
DATE OF PROCEDURE: 06/24/2020 PROCEDURE PERFORMED: Left distal tibia and fibula hardware removal. PREOPERATIVE DIAGNOSIS: Left distal tibia and fibula fracture, now healed with hardware irritation. POSTOPERATIVE DIAGNOSIS: Left distal tibia and fibula fracture, now healed with hardware irritation. IMPLANTS: None. AREA COUNSELOR: None. INDICATIONS FOR PROCEDURE: Ms. Olmos is a 75-year-old female, who has fallen from a horse approximately 8 months ago. She fractured her distal tibia and fibula and was treated with open reduction and internal fixation. She has had persistent irritation over the medial aspect of her leg related to her hardware. She has an inflammatory reaction of the plate as well. She has been indicated for plate removal to hopefully relieve her symptoms. Risks have been reviewed in detail. She has elected to proceed with the operation. DESCRIPTION OF PROCEDURE: Ms. Olmos was identified in the preoperative holding area. Her correct extremity was marked. She was carried to the operating room. She was positioned supine. General anesthesia was induced. A multidisciplinary time-out was performed. The left lower extremity was prepped and draped in a sterile fashion. We began the procedure with a small incision over the medial plate. We dissected down to the plate level. We cleared the soft tissues. We encountered the well-fixed hardware. All screws were removed distally. We then made a proximal incision and removed all proximal screws. We removed the plate under intraoperative x-ray. We cleared the bony prominences. We curetted the bone. We took deep cultures. At this point, we moved to the lateral leg. We made an incision over the distal fibula. We dissected down through the subcutaneous tissues. We cleared the bony edges. We removed the plate after removing all screws. We thoroughly irrigated with all lavaged. We then closed both wounds with 2-0 Vicryl suture followed by 3-0 nylon. A sterile dressing was applied. The patient was taken to recovery room in good condition. Job ID: [id number]
[2020-06-24] MEDS: Aspirin 81 mg Enteric Coated Tablet PO SCH ×2 (11:30→21:12)
--- NOTE | 2020-06-24 11:53 | RAD ---
EXAM: XR Ankle Lt 3 View STANDARD DATE: 06/24/2020 7:00 AM INDICATION: Left ankle hardware removal COMPARISON: None. FINDING: Single submitted fluoroscopic image of the left ankle demonstrates a side plate and screw c onstruct in the tibia with a screw present within the superior aspect of the plate and screw construct. There is partial visualization of a screw and plate construct of the fibula. Total fluoros copic time was 18.6 seconds. Total exposure was 32,014.2 mcg/sq cm IMPRESSION:Intraoperative fluoroscopy for hardware removal from the left ankle
[2020-06-24 13:23] VITALS: BMI 27.0
[2020-06-24] MEDS: CEFAZOLIN 2 GM in Premix Bag 1 BAG IVPB SCH ×2 (14:06→21:12)
[2020-06-24] MEDS: Acetaminophen 500 MG TAB PO PRN (21:12)
[2020-06-25] MEDS: Acetaminophen 500 MG TAB PO PRN ×2 (07:17→13:15)
[2020-06-25] MEDS: Aspirin 81 mg Enteric Coated Tablet PO SCH (09:00)
[2020-06-25 12:59] VITALS: BP 123/69; TEMP 98.3
--- NOTE | 2020-06-27 11:02 | DIS ---
DATE OF ADMISSION: 06/24/2020 DATE OF DISCHARGE: 06/25/2020 PREOPERATIVE DIAGNOSIS: Left distal tibia and fibula fracture, now healed with hardware irritation. POSTOPERATIVE DIAGNOSIS: Left distal tibia and fibula fracture, now healed with hardware irritation. PROCEDURE: Patient underwent a left distal tibia fibula hardware removal. HOSPITAL STAY: Grossly unremarkable. She had no complications during her overnight stay and by visiting her first thing in the morning, she was ready to go home. DISCHARGE CONDITION: Good/stable. DISPOSITION: Home with family. FOLLOWUP: Would be in 10 to 14 days, sooner if there are problems and/or concerns. DISCHARGE MEDICATIONS: She was taking Tylenol. She can use OTC medications at home. Job ID: [id number]
== END 2020-06-25 13:20 | disposition home or self-care (01) ==
LOC: SDC 05:56 → SURG A 08:49
PROVIDERS: ADMIT Orthopaedic Surgery; ATTEND Orthopaedic Surgery
PROC: 0YPB0YZ Removal of Other Device from Left Lower Extremity, Open Approach (ICD-10-PCS; principal; 2020-06-24)
DX: T84.84XA Pain due to internal orthopedic prosthetic devices, implants and grafts, initial encounter (principal); Z79.899 Other long term (current) drug therapy
CPT/HCPCS: 76000; 87070; 87077; 87186; 87205; 96365; 96366; G0378; J0690; J1100; J1170; J1885; J2175; J2405; J2704; J3010